=== PATIENT | male | born 1985 | race Caucasian/White ===

== ENCOUNTER 2017-07-13 15:10 | Observation (INO) | payer OTHER ==
[~2017-07-13] VITALS: Ht 167.6 cm; Wt 103.2 kg
[~2017-07-13 15:10] MED LIST: FLEXERIL10 MG PO; IBU-8800 MG PO; LORTAB 5/500 501 TAB PO
[2017-07-13 16:06] VITALS: BP 148/94
[2017-07-13 16:27] LABS: HEMOGLOBIN 14.8 g/dL (14.1-18.0); LYMPH # 2.4 K/mm3 (0.7-4.5)
--- NOTE | 2017-07-13 17:03 | RADIOLOGY REPORT PS360 ---
CHEST(2 VIEWS-NOT PORTABLE) HISTORY: Chest pain and pressure CHEST PAIN ORDERING PHYSICIAN: Jeffrey Chance MD PATIENT AGE: 32 years COMPARISON: None available FINDINGS: The cardiomediastinal silhouette and pulmonary vascularity are within normal limits. The lungs are clear without infiltrates, suspicious nodules, or pleural effusions. There is an azygos fissure is a normal variant No acute bony abnormalities. IMPRESSION: Negative chest, no acute finding
--- NOTE | 2017-07-13 19:41 | RADIOLOGY REPORT PS360 ---
PROCEDURE: 2-D M-mode and color Doppler study INDICATIONS FOR THE TEST: Chest pain+ COPD Heart Murmur Tobacco Smoking Palpitations Fatigue Syncope Edema Hypertension Diabetes Mellitus Rheumatic Fever SOB VALLADARES+Obesity+Hyperlipidemia Family History HD Additional History CP x 8 months gradually getting worse PATIENT INFORMATION HEIGHT: 70 WEIGHT: 230 GENDER: Male B/P: 168/96 2-D/M-MODE INTERPRETATION: 2-D MEASUREMENTS OBSERVED VALUES IN CMS Right Ventricular Dimension (RVDd) 2.7 Interventricular Septum (Thickness)(IVsd) 0.8 Left Ventricular Internal Dimensions(LVIDd) 5.1 Left Ventricular Posterior Wall (Thickness)(LVPWd) 0.9 Aortic Root 2.2 Aortic Cusp Separation 2.1 Left Atrial Dimensions (LAD) 4.6 2D 1. Left atrium is mildly enlarged, left ventricle is normal size, there is no concentric left ventricular hypertrophy, visually estimated ejection fraction 55% with no obvious regional wall motion abnormality. 2. The right atrium is normal size, right ventricle is mildly enlarged with normal contractility. 3. The aortic, mitral and tricuspid valve are structurally normal. 4. The pulmonic valve is poorly visualized. 5. No significant pericardial effusion noted. DOPPLER INTERROGATION: Doppler interrogation of the aortic mitral and tricuspid valvular presence of trace mitral and tricuspid regurgitation, diastolic parameters are within normal range. CONCLUSION: 1. Mildly enlarged left atrium, normal left ventricular size, there is no concentric left ventricular hypertrophy, visually estimated ejection fraction 55% with no obvious regional wall motion abnormality, diastolic parameters are within normal range. 2. Mildly enlarged right ventricle with normal contractility. 3. Trace mitral and tricuspid regurgitation of no hemodynamic significance. 4. No significant pericardial effusion noted.
[2017-07-13 20:02] VITALS: BP 130/92
[2017-07-13] MEDS ORDERED: DEXILANT60 MG PO (20:04)
--- NOTE | 2017-07-13 20:08 | Discharge Summary Standard ---
Demographics: Admit date: 07/13/17 Chief complaint: chest pain PRIMARY DIAGNOSIS: CHEST PAIN Allergies: Coded Allergies: Penicillins (07/13/17) History of present illness: History of present illness: 32-year-old white male with history of GERD, previously treated successfully with proton pump inhibitor he came to the office today with 4 days of increasing chest pressure and pain, somewhat associated with food, but also associated with exertion.He was found to have an abnormal EKG admitted to hospital for evaluation for cardiac disease. Past medical history: Family HX Diabetes Yes CAD Yes Hypertension Yes Hyperlipidemia No Cancer Yes TB No Immunization HX DT/Tetanus > 10 YRS Pneumonia Never Had TB Test in last year No General Angina: No FL: No Hypertension? No Hyperlipidemia? No CHF? No COPD? No Asthma? No Hernia? No CVA? No Seizures? No Diabetes? No UTI? No Stones? No GB Disease: No Nephritic Syndrome? No Asplenia? No Hepatitis? No Sickle Cell Disease? No Cataracts? No Glaucoma? No MRSA? No HIV? No TB? No Cancer? No More? No Past Surgical HX Previous Surgery?Y RIGHT GANGLION CYST Social Hx: Smoking HX Are you/the child exposed to second-hand smoke: No Alcohol Alcohol: No Hx of Drug Use Drug Use? No Patien't marital status is Patient's support system is excellent Review of systems: Constitutional No: fever, malaise, weakness. Respiratory No: no symptoms reported, cough. Cardiovascular see HPI Gastrointestinal/Abdominal see HPI Genitourinary No: no symptoms reported. Musculoskeletal No: no symptoms reported. Neurological No: see HPI. Exam: Lab data for last 24 hours: Laboratory Tests 07/13/17 1835: Creatine Kinase 148, CK-MB (CK-2) Rel Index 0.3, CK and CKMB Interp < 0.5, Troponin I < 0.02 07/13/17 1603: Creatine Kinase 162, CK-MB (CK-2) Rel Index 0.3, CK and CKMB Interp < 0.5, Troponin I < 0.02 07/13/17 1603: Sodium 139, Potassium 3.8, Chloride 101, Carbon Dioxide 31, BUN 18, Creatinine 1.0, Estimated Creat Clear 156, Estimated GFR (MDRD) 87, Glucose 84, Calcium 8.5 , TSH 0.75, WBC 7.1, RBC 4.54 L, Hgb 14.8, Hct 42.9, MCV 94.5, RDW 12.6, Plt Count 208, MPV 9.8, Gran % 54.2, Gran # 3.9, Lymphocytes % 33.0, Monocytes % 7.1 , Eosinophils % 5.0, Basophils % 0.7, Lymphocytes # 2.4, Monocytes # 0.5, Eosinophils # 0.4, Basophils # 0.1, PUBS MCHC 34.6, MCH 32.7 H Admission vital signs: 1ST Vital Signs Result Date Time Pulse Ox 100 07/13 1606 B/P 148/94 07/13 1606 O2 Delivery ROOM AIR 07/13 160 Temp 98.6 07/13 160 Pulse 90 07/13 160 Resp 20 07/13 1606 Exam General appearance: normal appearance, alert, awake Eyes: normal exam, anicteric ENT: normal exam, mucous membranes moist Neck: normal inspection, non-tender, no carotid bruit, no JVD Cardiovascular: normal exam Respiratory: normal exam, clear to auscultation ABD: normal exam, non-distended, normal bowel sounds Genitourinary: normal voiding & quantity Extremities: normal exam Musculoskeletal: normal exam Skin: normal exam, intact, normal color Neuro: normal exam, alert, no deficit Hospital Course Hospital Course: Patient was admitted, serial enzymes were done which were unremarkable with normal troponins. Echocardiogram was done with normal ejection fraction and wall motion. Telemetry monitoring was normal. Repeat EKG showed no changes over baseline with isolated Q-wave in lead 3. Patient was discharged home on proton pump inhibitor. Followup in 4 days in our office for stress testing schedule him for instructions on coming to the emergency department as needed for anginal pain were given. Medications Medications: Discharge meds are as noted. Follow up Follow up in office in: 4 DAYS with: JOEY HYDE APRN at 2006
[2017-07-13 20:26] VITALS: BP 130/92
--- OUTSIDE RECORDS SUMMARY | 2017-08-23 09:36 | External Medical Summary Rpt ---
Author Author CECILE Address Unknown Phone [email or web address] Purpose Continuity of Care Document - 07-13-2017 through 2016
--- OUTSIDE RECORDS SUMMARY | 2017-08-23 09:36 | External Medical Summary Rpt ---
Author Author CECILE Address Unknown Phone Purpose Continuity of Care Document - 07-13-2017 through 2016
--- OUTSIDE RECORDS SUMMARY | 2017-08-23 09:37 | External Medical Summary Rpt ---
Demographics Preferred Language Kazakh Marital Status Unknown Sabianist Affiliation Unknown Race Unknown Ethnic Group Unknown Author Author GUSTAVO Address Unknown Phone Immunization No patient found.
--- OUTSIDE RECORDS SUMMARY | 2017-08-23 09:37 | External Medical Summary Rpt ---
Author Author [employer] Organization [employer] Address Unknown Phone Unavailable Purpose Continuity of Care Document - through 2016
--- OUTSIDE RECORDS SUMMARY | 2017-08-23 09:37 | External Medical Summary Rpt ---
Author Author [employer], [employer] Organization [employer] Address Unknown Phone Unavailable Results Basic metabolic panel in Blood Observa Value Referen Units Interpr Notes Date tion ce etation Range DRAWN BY NURSE WITH IV START Urea 7 - 18 mg/dL Normal No Jul 13 nitrogen informati 2016 4:03 [Mass/vol on in PM ume] in source Serum or data Plasma Calcium 8.5 - mg/dL Normal No Jul 13 [Mass/vol 10.1 informati 2016 4:03 ume] in on in PM Serum or source Plasma data Chloride 98 - 107 mmoL/L Normal No Jul 13 [Moles/vo informati 2016 4:03 lume] in on in PM Serum or source Plasma data Carbon 21.0 - mmoL/L Normal No Jul 13 dioxide, 32.0 informati 2017 4:03 total on in PM [Moles/vo source lume] in data Serum or Plasma Creatinin 0.70 - mg/dL Normal No Jul 13 e 1.30 informati 2016 4:03 [Mass/vol on in PM ume] in source Serum or data Plasma Creatinin 50 - 200 ML/MIN Normal No Jul 13 e renal informati 2017 4:03 clearance on in PM source predicted data by Cockcroft -Gault formula Estimated >60 ML/MIN No REFERENCE Jul 13 informati RANGE: 2017 4:03 glomerula on in >60 PM r source ML/MIN/1. filtratio data 73 SQUARE n rate METERSIf (GF this patient is -A merican, then multiply theresult by 1.210. Glucose 74 - 106 mg/dL Normal No Jul 13 [Mass/vol informati 2016 4:03 ume] in on in PM Serum or source Plasma data Potassium 3.5 - 5.1 mmoL/L Normal No Jul 13 informati 2016 4:03 [Moles/vo on in PM lume] in source Serum or data Plasma Sodium 136 - 145 mmoL/L Normal No Jul 13 [Moles/vo informati 2016 4:03 lume] in on in PM Serum or source Plasma data Thyrotropin [Units/volume] in Serum or Plasma Observa Value Referen Units Interpr Notes Date tion ce etation Range DRAWN BY NURSE WITH IV START Thyrotrop 0.358 - uIU/ml Normal No Jul 13 in 3.740 informati 2016 4:03 [Units/vo on in PM lume] in source Serum or data Plasma CBC W Auto Differential panel in Blood Observa Value Referen Units Interpr Notes Date tion ce etation Range DRAWN BY NURSE WITH IV START Basophils 0 - 0.2 K/MM3 Normal No Jul 13 informati 2017 4:03 [#/volume on in PM ] in source Blood by data Automated count Basophils 0.1 - 2.0 % Normal No Jul 13 /100 informati 2017 4:03 leukocyte on in PM s in source Blood by data Automated count Eosinophi 0.0 - 0.4 K/mm3 Normal No Jul 13 ls informati 2016 4:03 [#/volume on in PM ] in source Blood by data Automated count Eosinophi 0.1 - % Normal No Jul 13 ls/100 12.0 informati 2017 4:03 leukocyte on in PM s in source Blood by data Automated count Granulocy 1.3 - 8.0 K/mm3 Normal No Jul 13 gretta informati 2017 4:03 [#/volume on in PM ] in source Blood by data Automated count Granulocy 37.0 - % Normal No Jul 13 gretta/100 80.0 informati 2017 4:03 leukocyte on in PM s in source Blood by data Automated count Hematocri 42.0 - % Normal No Jul 13 t [Volume 52.0 informati 2017 4:03 on in PM Fraction] source of Blood data Hemoglobi 14.1 - g/dL Normal No Jul 13 n 18.0 informati 2016 4:03 [Mass/vol on in PM ume] in source Blood data Lymphocyt 0.7 - 4.5 K/mm3 Normal No Jul 13 es informati 2016 4:03 [#/volume on in PM ] in source Unspecifi data ed specimen by Automated count Lymphocyt 10 - 50 % Normal No Jul 13 es informati 2016 4:03 [#/volume on in PM ] in source Unspecifi data ed specimen by Automated count Erythrocy 27 - 31.2 pg High No Jul 13 te mean informati 2017 4:03 corpuscul on in PM ar source hemoglobi data n [Entitic mass] Erythrocy 31.8 - g/dl Normal No Jul 13 te mean 35.4 informati 2017 4:03 corpuscul on in PM ar source hemoglobi data n concentra tion [Mass/vol ume] by Automated count Erythrocy 82.2 - fl Normal No Jul 13 te mean 97.8 informati 2017 4:03 corpuscul on in PM ar volume source [Entitic data volume] by Automated count Monocytes 0.1 - 1.0 K/mm3 Normal No Jul 13 informati 2017 4:03 [#/volume on in PM ] in source Blood by data Automated count Monocytes 1.7 - 9.3 % Normal No Jul 13 /100 informati 2017 4:03 leukocyte on in PM s in source Blood by data Automated count Platelet 7.4 - fl Normal No Jul 13 mean 10.4 informati 2017 4:03 volume on in PM [Entitic source volume] data in Blood by Automated count Platelets 142 - 424 K/mm3 Normal No Jul 13 informati 2017 4:03 [#/volume on in PM ] in source Blood data Erythrocy 4.6 - 6.2 M/mm3 Low No Jul 13 gretta informati 2017 4:03 [#/volume on in PM ] in source Amniotic data fluid Erythrocy 11.5 - % Normal No Jul 13 te 17.5 informati 2017 4:03 distribut on in PM ion width source [Entitic data volume] by Automated count Leukocyte 4.8 - K/MM3 Normal No Jul 13 s 10.8 informati 2017 4:03 [#/volume on in PM ] in source Blood data
--- OUTSIDE RECORDS SUMMARY | 2017-08-23 09:37 | External Medical Summary Rpt ---
Demographics Preferred Language Sinhala Marital Status Unknown Oriental Orthodox Affiliation Unknown Race Unknown Ethnic Group Unknown Author Author GUSTAVO Address Unknown Phone Immunization No patient found.
== END 2017-07-13 20:25 | disposition home or self-care (01) ==
LOC: 2ND 15:10
PROVIDERS: Internal Medicine Adolescent Medicine
DX: R07.9 Chest pain, unspecified (principal)
CPT/HCPCS: G0378

== ENCOUNTER 2017-08-25 15:21 | Emergency (ER) | payer OTHER ==
[~2017-08-25] VITALS: Ht 167.6 cm; Wt 104.3 kg
[~2017-08-25 15:21] MED LIST changes: +DEXILANT60 MG PO
--- NOTE | 2017-08-25 15:56 | Emergency Room Report ---
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 N Clinical Suspician of Infection? N Mental Status: 1 - Regular (Normal Baseline) Sepsis Risk:Low Sepsis Risk Have you (or family members/close friends) recently traveled outside the [place]? N If Yes, where/when: Have you had exposure to infectious disease within the past month? N TB? Other? Specify: Comment The patient sustained an injury to his left eye about 40 minutes ago. He was cutting a limb with or when the sharp end of the limb came down and hit him RIGHT in his left eye. He had an immediate headache. He has pain in his left eye. He has a tingling numb sensation in his LEFT upper lip. He has not noticed double vision. He did not bleed from his nose. He does not wear glasses or contact lenses. ALLERGIES Coded Allergies: Penicillins (07/13/17) Home Medications Active Scripts Dexlansoprazole (Dexilant) 60 MG PO DAILY #30 ECC Prov: 07/13/17 History Medical History General Angina: No [place]: No Hypertension? No Hyperlipidemia? No CHF? No COPD? No Asthma? No Hernia? No CVA? No Seizures? No Diabetes? No End Stage Renal Disease? No UTI? No Stones? No GB Disease: No Nephritic Syndrome? No Asplenia? No Hepatitis? No Sickle Cell Disease? No Cataracts? No Glaucoma? No MRSA? No HIV? No TB? No Cancer? No More? No Immunization Hx DT/Tetanus > 10 YRS Pneumonia Never Had Surgical Hx Previous Surgery?Y RIGHT GANGLION CYST Family History Family Hx Diabetes Yes CAD Yes Hypertension Yes Hyperlipidemia No Cancer Yes TB No Social History Smoking Hx Smoker: Never Smoker Tobacco: No Alcohol Alcohol: No Review of Systems All Other Systems Reviewed and Negative Constitutional denies fever Eyes see HPI, pain Psychiatric/Neurological headache, numbness Physical Exam Vital Signs Vital Signs Date Time Temp Pulse Resp B/P Pulse O2 O2 Flow FiO2 Ox Delivery Rate 08/25 1808 98.7 69 18 118/72 100 08/25 1749 98.7 69 18 110/77 100 08/25 1649 18 08/25 1621 69 18 110/77 100 08/25 1527 98.7 68 18 113/76 100 General Appearance mild distress Eye Exam Comment Superficial laceration LEFT lower lid not involving the border. Injection of the LEFT conjunctiva. No hyphema seen. Ocular fundus appears unremarkable. There is some hematoma of the conjunctiva laterally and inferiorly. No proptosis seen. Fluorescein staining performed with magnification. Extensive abrasion of the cornea and surrounding sclera. Pupils round and reactive and there are no signs at this time of globe penetration. Respiratory Status No: respiratory distress. Cardiovascular regular rate/rhythm Comment VA 20/50 L 20/20 R Neurologic alert, Decreased sensation LEFT upper lip. He has some "skewed" diplopia with LEFT lateral gaze. No visible extraocular movement deficit. Medical Decision Making LABS/Meds/Orders Pt receiving controlled substance in ED? Yes Prem was queried for this patient? Yes Comment [id number] 0 rxs. Results/Orders Current Medication Orders Sig/Lm Start time Last Medication Dose Route Stop Time Status Admin Diphtheria/Pertussis/ 0.5 ML ONCE ONE 08/25 1645 DC 08/25 Tetanus Vacc IM 08/25 1646 1648 Hydrocodone Bitart/ 1 TAB ONCE ONE 08/25 1645 DC 08/25 Acetaminophen PO 08/25 1646 1649 Hydrocodone Bitart/ 0 .STK-MED ONE 08/25 164 DC Acetaminophen PO Diphtheria/Pertussis/ 0 .STK-MED ONE 08/25 164 DC Tetanus Vacc IM Miscellaneous 0 .STK-MED ONE 08/25 1535 DC XX Orders Procedure Date/time Status DIET-NOTHING BY MOUTH 08/[address] SINUS (MAX-FACIAL W/O CONT) 08/[address] HEAD W/O CONTRAST 08/[address] HEAD REQ 08/[address] SCAN REQ 08/25 1549 Complete GEN NSG/PT REQ (NOT FOR MEDS!) 08/25 153 Active XRAY/CT/US XRAY/CT/US CT head, maxillofacial Comment CT scan interpreted by ad radiologist. Faxed report received and reviewed: Head: No acute intracranial injury or skull fracture. Maxillofacial: Trace hemorrhage or edema fluid along the posterior lateral surface of the LEFT globe within the intracranial fat. LEFT preseptal swelling and periorbital swelling. No fractures. No radial opaque foreign body seen in the orbit. No soft tissue emphysema or intraorbital emphysema. Mild chronic sinus disease. Progress - 5:20 PM: Edema and ecchymosis of the lower lid has increased. Soft conjunctival hemorrhage present on the inferior lateral aspect of the eye has increased in size. Case discussed discussed with Dr. Suarez, underground distribution engineer covering for Dr. Boyce. He recommends that the patient be sent to [facility] for a full ophthalmologic evaluation to rule out rupture of the globe. Case discussed with Dr. Andrews, underground distribution engineer correction officer head at [facility]. She agrees and excepts the patient to transfer to the emergency department. Departure Departure Disposition DC Home or Self Care(routine) Clinical Impression Primary Impression: Contusion, eye, left Qualifiers: Encounter type: initial encounter Qualified Code: S05.12XA - Contusion of eyeball and orbital tissues, left eye, initial encounter Secondary Impressions: Left corneal abrasion Qualifiers: Encounter type: initial encounter Qualified Code: S05.02XA - Injury of conjunctiva and corneal abrasion without foreign body, left eye, initial encounter Subconjunctival hemorrhage of left eye Condition STABLE ED Critical Care Critical Care No at 1820
--- NOTE | 2017-08-25 15:56 | Emergency Room Report ---
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 N Clinical Suspician of Infection? N Mental Status: 1 - Regular (Normal Baseline) Sepsis Risk:Low Sepsis Risk Have you (or family members/close friends) recently traveled outside the [place]? N If Yes, where/when: Have you had exposure to infectious disease within the past month? N TB? Other? Specify: Comment The patient sustained an injury to his left eye about 40 minutes ago. He was cutting a limb with or when the sharp end of the limb came down and hit him RIGHT in his left eye. He had an immediate headache. He has pain in his left eye. He has a tingling numb sensation in his LEFT upper lip. He has not noticed double vision. He did not bleed from his nose. He does not wear glasses or contact lenses. ALLERGIES Coded Allergies: Penicillins (07/13/17) Home Medications Active Scripts Dexlansoprazole (Dexilant) 60 MG PO DAILY #30 ECC Prov: 07/13/17 History Medical History General Angina: No [place]: No Hypertension? No Hyperlipidemia? No CHF? No COPD? No Asthma? No Hernia? No CVA? No Seizures? No Diabetes? No End Stage Renal Disease? No UTI? No Stones? No GB Disease: No Nephritic Syndrome? No Asplenia? No Hepatitis? No Sickle Cell Disease? No Cataracts? No Glaucoma? No MRSA? No HIV? No TB? No Cancer? No More? No Immunization Hx DT/Tetanus > 10 YRS Pneumonia Never Had Surgical Hx Previous Surgery?Y RIGHT GANGLION CYST Family History Family Hx Diabetes Yes CAD Yes Hypertension Yes Hyperlipidemia No Cancer Yes TB No Social History Smoking Hx Smoker: Never Smoker Tobacco: No Alcohol Alcohol: No Review of Systems All Other Systems Reviewed and Negative Constitutional denies fever Eyes see HPI, pain Psychiatric/Neurological headache, numbness Physical Exam Vital Signs Vital Signs Date Time Temp Pulse Resp B/P Pulse O2 O2 Flow FiO2 Ox Delivery Rate 08/25 1808 98.7 69 18 118/72 100 08/25 1749 98.7 69 18 110/77 100 08/25 1649 18 08/25 1621 69 18 110/77 100 08/25 1527 98.7 68 18 113/76 100 General Appearance mild distress Eye Exam Comment Superficial laceration LEFT lower lid not involving the border. Injection of the LEFT conjunctiva. No hyphema seen. Ocular fundus appears unremarkable. There is some hematoma of the conjunctiva laterally and inferiorly. No proptosis seen. Fluorescein staining performed with magnification. Extensive abrasion of the cornea and surrounding sclera. Pupils round and reactive and there are no signs at this time of globe penetration. Respiratory Status No: respiratory distress. Cardiovascular regular rate/rhythm Comment [place] 20/50 L 20/20 R Neurologic alert, Decreased sensation LEFT upper lip. He has some "skewed" diplopia with LEFT lateral gaze. No visible extraocular movement deficit. Medical Decision Making LABS/Meds/Orders Pt receiving controlled substance in ED? Yes Prem was queried for this patient? Yes Comment [id number] 0 rxs. Results/Orders Current Medication Orders Sig/Lm Start time Last Medication Dose Route Stop Time Status Admin Diphtheria/Pertussis/ 0.5 ML ONCE ONE 08/25 1645 DC 08/25 Tetanus Vacc IM 08/25 1646 1648 Hydrocodone Bitart/ 1 TAB ONCE ONE 08/25 1645 DC 08/25 Acetaminophen PO 08/25 1646 1649 Hydrocodone Bitart/ 0 .STK-MED ONE 08/25 164 DC Acetaminophen PO Diphtheria/Pertussis/ 0 .STK-MED ONE 08/25 164 DC Tetanus Vacc IM Miscellaneous 0 .STK-MED ONE 08/25 1535 DC XX Orders Procedure Date/time Status DIET-NOTHING BY MOUTH 08/[address] SINUS (MAX-FACIAL W/O CONT) 08/[address] HEAD W/O CONTRAST 08/[address] HEAD REQ 08/[address] SCAN REQ 08/25 1549 Complete GEN NSG/PT REQ (NOT FOR MEDS!) 08/25 153 Active XRAY/CT/US XRAY/CT/US CT head, maxillofacial Comment CT scan interpreted by ad radiologist. Faxed report received and reviewed: Head: No acute intracranial injury or skull fracture. Maxillofacial: Trace hemorrhage or edema fluid along the posterior lateral surface of the LEFT globe within the intracranial fat. LEFT preseptal swelling and periorbital swelling. No fractures. No radial opaque foreign body seen in the orbit. No soft tissue emphysema or intraorbital emphysema. Mild chronic sinus disease. Progress - 5:20 PM: Edema and ecchymosis of the lower lid has increased. Soft conjunctival hemorrhage present on the inferior lateral aspect of the eye has increased in size. Case discussed discussed with Dr. Suarez, information assurance engineer covering for Dr. Boyce. He recommends that the patient be sent to [facility] for a full ophthalmologic evaluation to rule out rupture of the globe. Case discussed with Dr. Andrews, information assurance engineer nurses' association counselor at [facility]. She agrees and excepts the patient to transfer to the emergency department. Departure Departure Disposition DC Home or Self Care(routine) Clinical Impression Primary Impression: Contusion, eye, left Qualifiers: Encounter type: initial encounter Qualified Code: S05.12XA - Contusion of eyeball and orbital tissues, left eye, initial encounter Secondary Impressions: Left corneal abrasion Qualifiers: Encounter type: initial encounter Qualified Code: S05.02XA - Injury of conjunctiva and corneal abrasion without foreign body, left eye, initial encounter Subconjunctival hemorrhage of left eye Condition STABLE ED Critical Care Critical Care No at 1820
[2017-08-25 18:08] VITALS: BP 118/72
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
--- OUTSIDE RECORDS SUMMARY | 2017-08-31 15:26 | External Medical Summary Rpt | CCD ---
Demographics Preferred Language [place] Island[place] Marital Status Unknown Jainism Affiliation Unknown Race Unknown Ethnic Group Unknown Author Author , CECILE HUBER Address Unknown Phone Immunization No patient found.
--- OUTSIDE RECORDS SUMMARY | 2017-08-31 15:26 | External Medical Summary Rpt | CCD ---
Demographics Preferred Language Dutch Marital Status Unknown Alevism Affiliation Unknown Race Unknown Ethnic Group Unknown Author Author , CECILE HUBER Address Unknown Phone Immunization No patient found.
--- OUTSIDE RECORDS SUMMARY | 2017-08-31 15:26 | External Medical Summary Rpt ---
Author Author CECILE Coughlin, [employer] Organization [employer] Address Unknown [...]
== END 2017-08-25 18:10 | disposition home or self-care (01) ==
LOC: ER 15:21
DX: S05.12XA Contusion of eyeball and orbital tissues, left eye, initial encounter (principal); S05.02XA Injury of conjunctiva and corneal abrasion without foreign body, left eye, initial encounter; H11.32 Conjunctival hemorrhage, left eye; W22.8XXA Striking against or struck by other objects, initial encounter; Y92.89 Other specified places as the place of occurrence of the external cause; Z23 Encounter for immunization